=== PATIENT | male | born 1975 | race Caucasian/White ===

== ENCOUNTER 2018-01-12 10:58 | Emergency (ER) | payer OTHER, SELFPAY ==
[2018-01-12 11:01] VITALS: BP 155/77; PULSE 89; RESP 16; TEMP 36.7; O2SAT 99; BMI 27.3
[2018-01-12] MEDS: Diphth,Pertuss(Acell),Tet Vac 0.5 ML Vial IM (11:25)
--- NOTE | 2018-01-12 11:27 | RAD_ITS ---
STUDY: X-RAY - RIGHT HAND, ATTENTION 2nd FINGER REASON FOR EXAM: Male, 42 years old. LACERATION TO RIGHT 2ND DIGIT FROM LOG SPLITTER TECHNIQUE: 3 view(s) of the finger were obtained. COMPARISON: None. FINDINGS: Normal metacarpal head. Normal metacarpophalangeal joint. Normal proximal phalanx. Normal middle phalanx. Normal distal phalanx. Normal proximal interphalangeal joint. Normal distal interphalangeal joint. Air is seen in the soft tissues at the tip of the index finger consistent with laceration. RAD/Finger(s) Min 2 Views IMPRESSION: No acute bone injury of the finger. Electronically Signed: Rachel Pritchett MD at 12:05 EDT Tel , Service support ,
[2018-01-12 12:04] VITALS: PULSE 66; RESP 15; O2SAT 99
--- NOTE | 2018-01-12 13:26 | ED.VISSUMM ---
- ER Visit Summary Date of Service: 01/12/18 Chief Complaint: Right index finger laceration History of Present Illness: The patient is a 42 M hand dominant. He was splitting wood today using a wood splitter got his finger caught between the wooden splinter and caused a significant laceration of the right index finger. He denies numbness. This occurred in the last hour. He is unsure of his last tetanus shot and that will be updated. He denies other injuries. Physical Examination: Well appearing male. No acute distress. Vital signs stable afebrile. HEENT exam unremarkable. Lungs clear to auscultation. Heart regular rhythm no murmur. Abdomen soft nontender. Extremities moving all 4. Neurovascular intact. Specifically his right index finger he has a significant laceration going from the tip of the index finger around and up till almost his PIP joint. It involves the skin and subcu tissue. It is a large deep flap. There is mild oozing of blood. No pulsatile bleeding. He has normal cap refill at tip of his finger. The nail is intact. There is no significant subungual hematoma. There is no foreign bodies. There is no obvious bony injury. He has full flexion-extension all digits of the right hand. He has normal touch sensation and cap refill on the distal tip of the right index finger. Test Results: X-ray of the right index finger shows no acute fracture read by myself. No foreign body. Emergency Department Course and Treatment: Procedure note: Right index finger laceration with ER repair. This was approximately 6 cm laceration. Involves skin and subcu tissue. A digital block was performed of his right index finger. Once proper anesthetic was obtained the area was cleaned using iodine. Wound was washed explored and copiously irrigated with saline. Closed using 8 simple interrupted 4-0 Ethilon sutures. Proper hemostasis and wound closure was obtained. I went over the repair and care with both the patient and his . Due to the depth of the wound that we will place him on antibiotics. Treatment Plan: Wound care. Suture removal in 10-14 days. Ice and elevate. Motrin for pain. Keflex 4 times a day for 5 days. Disposition: Discharge Impression: Right index finger 6 cm laceration with ER repair. Tetanus updated. This note was generated with [employer] software. It may contain incorrect words, spelling, and punctuation that were not noted in review of the chart prior to signing ED Disposition - Plan for ED Patient: Chief Complaint: Wound Referrals: Care Physician,No Primary [Primary Care Provider] -
--- NOTE | 2018-01-12 13:32 | DCINST.ED_ITS ---
ED Disposition - Plan for ED Patient: Disposition: Home or Assisted Living Chief Complaint: Wound Instructions: ED Laceration Hand Prescriptions: Cephalexin [Keflex] 500 mg PO Q6 #20 cap Referrals: George Dodd MD [STAFF PHYSICIAN] - 10-14 Days suture removal Additional Instructions: Keep clean and dry. Wash daily with soap and water or peroxide and water and dry thoroughly. Anti biotic ointment applied twice daily. Tylenol and Motrin for pain. Finish antibiotic Keflex to try to prevent infection. Aluminum splint for comfort and to protect it may take it on and off as much as you would like. Suture removal in 10-14 days. Watch for any signs of infection is seen return.
== END 2018-01-12 13:42 | disposition home or self-care (01) ==
PROVIDERS: Emergency Provider Emergency Medicine
DX: S61.210A Laceration without foreign body of right index finger without damage to nail, initial encounter (principal); Z23 Encounter for immunization; W29.8XXA Contact with other powered hand tools and household machinery, initial encounter; Y93.89 Activity, other specified; Y92.89 Other specified places as the place of occurrence of the external cause; Y99.8 Other external cause status
CPT/HCPCS: 12002; 73140; 90471; 90715; 99283

== ENCOUNTER 2020-03-27 10:46 | Day surgery (SDC) | payer OTHER, SELFPAY ==
[2020-03-13 13:34] VITALS: BMI 29.1
[2020-03-27] VITALS (7 sets, daily range): BP systolic 119–130; BP diastolic 70–92; PULSE 57–81; RESP 16–20; TEMP 36.2–36.7; O2SAT 93–97; BMI 28.8
--- NOTE | 2020-03-27 | HERN_PTH ---
PATIENT: LORENA MCDANIELS [place] [facility] [place][id number] AGE/SX: 45/M ROOM: RE03/27/[address]: Dr. Maximiliano Mcguire MD : 1975 BED: DIS: 03/27/2020 SPEC #: [id number] RECD: 03/27/20 14:23 STATUS: BERNADETTE REHilary #: [id number] GT: 03/27/20 00:[address]: Maximiliano Mcguire DEPT: SURGICAL PATHOLOGY RECD BY: Sonny Alvarez ENTERED: 03/30/20 10:17 SP TYPE: Hernia OTHR DR: Dr. Daryl Dietz MD Tissues: HERNIA Procedures: Surgery Specimen Level II HEADER OPERATION: Umbilical hernia repair with mesh PRE-OP DIAGNOSIS: Umbilical hernia TISSUE SUBMITTED: Hernia sac MICROSCOPIC DIAGNOSIS Hernia sac: A piece of fibroadipose and fibroconnective tissue, consistent with hernia sac. SJ:dave 03/31/20 MICROSCOPIC DESCRIPTION Slides are reviewed. GROSS DESCRIPTION Received in fixative is one container labeled with the patient's name and designated hernia sac. The specimen consists of a piece of yellow adipose tissue measuring 3.5 x 3.5 x 2 cm. Sections reveal yellow adipose cut surfaces without area of hemorrhage, necrosis or cystic degeneration. Automatic Maintainer sections are submitted in one cassette. / SJ:rg 03/30/20 TC:5 CPT: 48043
--- NOTE | 2020-03-27 07:42 | HP_ITS ---
Intake Vital Signs 03/13/20 Height 6 ft 2 in 03/13/20 Weight: 227 lb 03/13/20 BMI 29.1 03/13/20 BP 159/83 H 03/13/20 Blood Pressure Location Lt brachial 03/13/20 Position Sitting 03/13/20 Respiration 19 H 03/13/20 Pulse 80 03/13/20 Pulse Source Monitor 03/13/20 Temp 97.7 F L 03/13/20 Temp Source Temporal 03/13/20 Pulse Oximetry (%) 97 03/13/20 Oxygen Delivery Method room air Intake Visit Reasons: Umbilical Hernia Seedling Puller Required: No Accompanied by: Self Is patient in pain?: No Allergies No Known Allergies Allergy (Verified 03/13/20 13:35) Medications loratadine 10 mg tablet 10 mg PO DAILY 03/13/20 [History Confirmed 03/13/20] multivitamin 1 tab PO DAILY 03/13/20 [History Confirmed 03/13/20] PFSH Medical History Umbilical hernia (Acute) Surgical History H/O hernia repair (Acute) Family History Father Skin cancer Social History (Updated 03/13/20 @ 14:[address] Maximiliano Mcguire MD) Smoking Status: Never smoker Electronic Cigarette Use: not used second hand exposure: No alcohol intake: never substance use type: does not use HPI HPI Surgical H&P: Yes HPI: Melchor Sevilla, is a 45 M who presents to the office today for Evaluation of a lump at his umbilicus. Patient's noticed this for approximately 9 months he is really not had much of any pain except for on one occasion where he was noticing some discomfort on the left lateral side. The bulge itself has not really gotten any larger it is not hurt he has not noticed any change in his bowel or bladder habits. ROS Neuro Neurologic: Yes system reviewed and no additional complaints, except as docu, Yes as per HPI Exam Const General: no acute distress, well developed, well hydrated Orientation: oriented to person, oriented to place, oriented to time [facility] Head: normocephalic, atraumatic Ears: external ears normal Mouth: moist mucous membranes Eyes Sclera: sclerae normal Pupils: normal by confrontation Neck Neck: no lymphadenopathy noted Neck mass: No Thyroid: thyroid normal, symmetrical Chest Chest palpation & inspection: normal inspection of the chest Resp Effort & Inspection: normal respiratory effort Auscultation: clear to auscultation bilaterally Percussion: percussion normal Cardio Rate: regular rate Rhythm: regular rhythm GI Palpation: soft, no hepatosplenomegaly, no masses, tender Rectal Exam: other Other: Small umbilical hernia is identified above the umbilicus. It is nontender to touch. Rectal exam deferred. Extrem General: normal to inspection, no clubbing, cyanosis or edema Assessment & Plan Problems 1. Umbilical hernia without obstruction and without gangrene K42.9 Plan My plan is to perform an Umbilical hernia repair with mesh. The planned surgical procedure was discussed extensively with the patient. The risks, benefits, anticipated outcomes and possible complication were mentioned. The patient understands that all hernia repair surgery has a chance of recurrence and/or chronic post-operative pain. My staff has also explained the procedure in understandable terms and the patient was given the option to take printed material concerning the planned procedure. The patient had the opportunity to ask questions concerning the planned procedure. The patient freely consents to the planned procedure. Coding Level of Care Code Off vis,new,level 3 Diagnoses Umbilical hernia without obstruction and without gangrene K42.9 COVID (Procedure Consent) Procedure Criteria Procedure Criteria: Yes Elective The surgeon/proceduralist and patient have discussed in detail the risk of exposure to and/or potential harm posed by the COVID-19 virus with having a surgery/procedure at this time versus the risk of? delaying the surgery/procedure. It is not possible to know either the risk of delaying the surgery or procedure or chance of getting an infection with perfect accuracy, but a joint decision was made between the patient and the surgeon/proceduralist ?to proceed at this time with the scheduled surgery/procedure as indicated on the consent form. I have re-examined the patient. There are no clinical changes since date of exam.
[2020-03-27] MEDS: Lactated Ringers 1,000 ML 100 ML IV ×3 (11:30→14:37)
[2020-03-27] MEDS: Cefazolin 2 GM in 0.9% Normal Saline 100 ML IV (12:54)
[2020-03-27] MEDS: Bupivacaine Mpf 0.5% 30 ML VIAL (13:00)
--- NOTE | 2020-03-27 13:03 | DCINST_ITS ---
Discharge Diet: Light diet - advance as tolerated Discharge Activity: Return to Normal Activity, May Drive - when you are no longer taking narcotic pain medications., May Shower - with the bandage in place 1-2 days after surgery. Lifting Restrictions: 20 pounds for 8 weeks. Additional Activity Instructions:: Climbing stairs is fine, walking is encouraged. Sitting in bed may be uncomfortable. Sitting up using your lateral muscles (sitting up sideways) is usually more comfortable. Do not drive, work heavy equipment of sign legal documents for 24 hours. If your hernia repair was an ingunial repair, you may have scrotal swelling, an ice pack and/or athletic support can provide more comfort. Pain medications may cause nausea, you should typically eat light foods as you take your pain medications. Pain medications may also cause constipation. If you have difficulty with this, discuss with your doctor. Call your doctor if your incision/area has: Continuous Slow Oozing, Sudden Increased Bleeding, Increased Pain/ Swelling, Increased Redness, Foul Smelling Discharge Call your doctor if you observe: Fever of 101 or Higher Suture Line Care: Avoid Pulling/Pushing, Avoid Pinching/Bending Additional Dressing/Incision Instructions:: Leave the operative bandage on for 2-3 days. When you remove the bandage, leave the steri-strips on place until your follow up appointment or they fall off. Allergies/Adverse Reactions: Allergies No Known Allergies Allergy (Verified 03/20/20 15:37) Medications to take at Discharge loratadine 10 mg tablet 10 mg PO DAILY 03/13/20 multivitamin 1 tab PO DAILY 03/13/20 Oxycodone HCl/Acetaminophen [Percocet 5/325] 1 - 2 tablet PO Q4H PRN PRN 6 Days #30 tablet 03/27/20 The following prescriptions were given: Oxycodone HCl/Acetaminophen [Percocet 5/325] 1 - 2 tablet PO Q4H PRN PRN 6 Days #30 tablet PRN Reason: Pain Transmission Status: Sent to [facility] Primary Care Physician: Daryl Dietz MD [Primary Care Provider] - Test Results: Test results from this visit will be discussed in further detail at your follow- up appointment, if applicable. Please Follow Up With: Maximiliano Mcguire MD - [phone] When: Plan to have a follow up appointment in 7 days. Call to schedule.
--- NOTE | 2020-03-27 13:05 | PCM.OPRPT ---
Problem List (1) Umbilical hernia Status: Acute Qualifiers: Obstruction and gangrene presence: without obstruction or gangrene Qualified Code(s): K42.9 - Umbilical hernia without obstruction or gangrene Report of Operation Date of Procedure: 03/27/20 Pre-Operative Diagnosis: Umbilical hernia Post-Operative Diagnosis: Same Surgery/Procedure Performed:: Umbilical hernia repair with mesh Type of Anesthesia:: General Anesthesiologist: Kev Saha Estimated Blood Loss (mL): < 25 cc Description of Procedure: Patient was brought into the operating room. Placed in the supine position. Under excellent general trach intubation abdomen was sterilely prepped and draped in usual fashion. Local was injected supraumbilically. Dissection was carried down hernia containing preperitoneal fat was identified. I transected it tying it off with 0 Vicryl and sent this hernias fat and sac to pathology for permanent sectioning. He then had a defect that was approximately the width of my index finger. I circumferentially dissected in the preperitoneal space had good pneumostasis I placed a small Ventralex hernia patch into the wound. I circumferentially tacked it to the fascia using #1 Nurolon's. Local was injected. Skin was then brought together with deep dermal stitches of 3-0 Vicryl then a running 4-0 Monocryl Steri-Strips were applied sterile dressings were applied the patient tolerated the procedure well. - Admit VTE Documentation VTE Present on Admission: No VTE Mechan Device Prophylaxis: SCD's VTE Pharm Prophylaxis ordered?: No Reason prophylaxis not ordered:: Treatment Not Indicated [id number]: [id number] Rpr umbil debby reduc > 5 yr
== END 2020-03-27 16:06 | disposition home or self-care (01) ==
LOC: SDC 10:50 → AC 10:51
PROVIDERS: PCP Family Medicine; Referring Provider Surgery; Visit Provider Surgery
PROC: (CPT 49585; principal; 2020-03-27 12:45)
DX: K42.9 Umbilical hernia without obstruction or gangrene (principal); Z20.828 Contact with and (suspected) exposure to other viral communicable diseases
CPT/HCPCS: 00750; 49585; 87426; 88302; C9803; J7120; C1781; J2405

== ENCOUNTER → 2020-03-30 | Outpatient (CLI) | payer OTHER, SELFPAY ==
[2020-03-27 11:20] VITALS: BMI 28.8
== END | disposition home or self-care (01) ==
LOC: LABSPEC 14:54
PROVIDERS: PCP Family Medicine; Referring Provider Physician Assistant; Visit Provider Physician Assistant
DX: R07.0 Pain in throat (principal); J39.2 Other diseases of pharynx
CPT/HCPCS: 87070; 87081